=== PATIENT | female | born 1990 | race Caucasian/White ===

== ENCOUNTER 2020-06-04 18:39 | Emergency (ER) | payer MEDICAID ==
[~2020-06-04] VITALS: Ht 167.6 cm; Wt 78.9 kg
[2020-06-04 18:47] VITALS: BP 118/75
--- NOTE | 2020-06-04 18:55 | NUR ---
Note undone in EDM - 06/04/20 at 1907 by DEMARCO PT WAS REFERRED HERE FROM HER PCP LUCIO VARELA FOR SWOLLEN VARICOSE VEIN ON THE RIGHT LOWER LATERAL THIGH AND CALF THAT BEGAN 4 MONTHS AGO. DENIES ANY LEG PAIN OR NUMBNESS. 7 MONTHS . DENIES N/V/D; SKIN IS PINK/WARM/DRY; AAOX4 WITH EVEN AND STEADY GAIT; LUNGS CLEAR BL; HR EVEN AND REGULAR; PT DENIES ANY FEVER, CP, SOB, OR COUGH AT THIS TIME; PATIENT STATES PAIN OF 0/10 AT THIS TIME; VSS; PATIENT POSITIONED FOR COMFORT; HOB ELEVATED; BEDRAILS UP X1; BED DOWN. ER MADE AWARE OF PT STATUS.
--- NOTE | 2020-06-04 19:06 | NUR ---
US IS AT BEDSIDE.
--- NOTE | 2020-06-04 19:14 | NUR ---
REPORT GAVE TO STORMY OSEGUERA. TRANSFER OF CARE AT THIS TIME.
--- NOTE | 2020-06-04 19:14 | NUR ---
REPORT RECEIVED FROM STORMY TAPIA FOR CONTINUATION OF CARE.
[2020-06-04 20:06] VITALS: BP 110/71
--- NOTE | 2020-06-04 20:06 | NUR ---
Patient discharged with v/s stable. Written and verbal after care instructions given and explained. Patient verbalized understanding. Ambulatory with steady gait. All questions addressed prior to discharge. Advised to follow up with PMD.
== END 2020-06-04 20:06 | disposition home or self-care (01) ==
LOC: MED 18:39
DX: I83.91 Asymptomatic varicose veins of right lower extremity (principal)
CPT/HCPCS: 93971; 99284; Q0092